=== PATIENT | male | born 1960 | race Caucasian/White ===

== ENCOUNTER 2020-08-28 13:49 | Inpatient (IN) | payer OTHER ==
[~2020-08-28] VITALS: Ht 177.8 cm; Wt 156.3 kg
--- NOTE | 2020-08-28 14:21 | NUR ---
pt from lobby to room 27
[2020-08-28 14:44] LABS: BASOPHILS % (AUTO) 0 % (0-1); EOSINOPHILS % (AUTO) 1 % (1-7); LYMPHOCYTES % (AUTO) 15 % (22-44); MEAN CORPUSCULAR HEMOGLOBIN 29.7 pg (27.5-34.5); MEAN CORPUSCULAR HGB CONC 34.3 g/dL (33.2-36.2); MEAN PLATELET VOLUME 8.5 fL (7.4-10.4); MONOCYTES % (AUTO) 9 % (2-9); NEUTROPHILS % (AUTO) 75 % (42-75); PLATELET COUNT 195 x10^3/uL (130-400); RED CELL DISTRIBUTION WIDTH 13.7 % (9.4-14.8)
[2020-08-28 14:45] LABS: MD NO
--- NOTE | 2020-08-28 15:02 | NUR ---
CC OF RIGHT LEG SWELLING AND REDNESS FOR A FEW DAYS WITH INCREASING PAIN TODAY. PULSES PRESENT BILAT AND EQUAL. PT DENIES HX OF DVT. 4+ PITTING EDEMA TO RIGHT LEG AND FOOT. AT BEDSIDE
[2020-08-28] MEDS ORDERED: CLINDAMYCIN PMX 600MG/50ML 50 ML IVPB ONE (15:30)
[2020-08-28] MEDS ORDERED: SODIUM CHLORIDE FLUSH 10ML SYR IVF ONE (15:30)
[2020-08-28] MEDS ORDERED: CLINDAMYCIN PMX 600MG/50ML 50 ML ONE (15:47)
[2020-08-28] MEDS ORDERED: LISI40TA9 PO (16:09)
[2020-08-28] MEDS ORDERED: SPIR25TA5 PO (16:09)
[2020-08-28] MEDS ORDERED: METF500T17 PO (16:12)
[2020-08-28] MEDS ORDERED: AMLO-211 PO (16:12)
[2020-08-28] MEDS ORDERED: PRAZ5CAP2 PO (16:12)
[2020-08-28] MEDS ORDERED: CARV-39 PO (16:12)
[2020-08-28 16:13] LABS: ALANINE AMINOTRANSFERASE 35 U/L (12-78); ALBUMIN 3.5 g/dL (3.4-5.0); ANION GAP 8 mmol/L (5-15); CALCIUM 9.3 mg/dL (8.5-10.1); CHLORIDE 107 mmol/L (98-107); CREATININE 1.62 mg/dL (0.7-1.3)
[2020-08-28 16:15] LABS: ALKALINE PHOSPHATASE 81 U/L (45-117); BILIRUBIN,TOTAL 0.4 mg/dL (0.2-1.0); TOTAL PROTEIN 8.5 g/dL (6.4-8.2)
[2020-08-28] MEDS ORDERED: SODIUM CHLORIDE FLUSH 10ML SYR IVF PRN (17:00)
--- NOTE | 2020-08-28 17:00 | NUR ---
TO BRING CPAP MACHINE FROM HOME IN
--- NOTE | 2020-08-28 18:10 | NUR ---
REPORT GIVEN TO TEENA ANDERSON
[2020-08-28 18:41] VITALS: BP 125/73
[2020-08-28] MEDS ORDERED: CEFAZOLIN 2,000 MG in SODIUM CHLORIDE 0.9% 50 ML IV SCH (19:30)
[2020-08-28] MEDS: CEFAZOLIN PMX 2GM/50ML 50 ML IVPB SCH (19:51)
[2020-08-28] MEDS: SPIRONOLACTONE 25 MG TABLET PO SCH (19:59)
[2020-08-28] MEDS: PRAZOSIN 5 MG CAPSULE PO SCH (19:59)
[2020-08-28] MEDS: HEPARIN 5,000 UNITS/ML, 1ML SQ SCH (19:59)
[2020-08-28] MEDS: CARVEDILOL 25 MG TABLET PO SCH (19:59)
[2020-08-28 20:00] VITALS: BP 110/70
[2020-08-28] MEDS: INSULIN LISPRO 100 UNITS/ML, PEN SQ-INSULIN SCH (20:58)
[2020-08-28] MEDS: ACETAMINOPHEN 325 MG TABLET PO PRN (21:01)
[2020-08-28 22:13] LABS: CREATININE,URINE RANDOM 65.9 mg/dL
[2020-08-28 22:31] VITALS: BP 125/73
[2020-08-29 03:20] VITALS: BP 104/58
[2020-08-29] MEDS: HEPARIN 5,000 UNITS/ML, 1ML SQ SCH ×3 (03:20→19:57)
[2020-08-29 05:34] LABS: BASOPHILS % (AUTO) 0 % (0-1); EOSINOPHILS % (AUTO) 1 % (1-7); LYMPHOCYTES % (AUTO) 17 % (22-44); MEAN CORPUSCULAR HGB CONC 34.3 g/dL (33.2-36.2); MEAN PLATELET VOLUME 8.5 fL (7.4-10.4); MONOCYTES % (AUTO) 10 % (2-9); NEUTROPHILS % (AUTO) 72 % (42-75); PLATELET COUNT 175 x10^3/uL (130-400); RED BLOOD COUNT 3.99 x10^6/uL (4.38-5.82); RED CELL DISTRIBUTION WIDTH 13.8 % (9.4-14.8)
[2020-08-29 05:35] LABS: ANION GAP 6 mmol/L (5-15); CHLORIDE 108 mmol/L (98-107)
[2020-08-29 05:36] LABS: CREATININE 1.26 mg/dL (0.7-1.3)
[2020-08-29 05:55] LABS: MD NO
[2020-08-29 06:51] VITALS: BP 129/79
[2020-08-29] MEDS: CEFAZOLIN PMX 2GM/50ML 50 ML IVPB SCH ×2 (07:52→15:59)
[2020-08-29] MEDS: ACETAMINOPHEN 325 MG TABLET PO PRN ×2 (07:52→15:59)
[2020-08-29] MEDS: SPIRONOLACTONE 25 MG TABLET PO SCH ×2 (08:43→19:57)
[2020-08-29] MEDS: CARVEDILOL 25 MG TABLET PO SCH ×2 (08:43→19:57)
[2020-08-29] MEDS: INSULIN LISPRO 100 UNITS/ML, PEN SQ-INSULIN SCH ×4 (08:44→19:58)
[2020-08-29] MEDS ORDERED: AMLODIPINE 10 MG TAB PO SCH ×2 (09:00→21:00)
[2020-08-29 12:17] VITALS: BP 101/71
[2020-08-29 19:49] VITALS: BP 128/62
[2020-08-29] MEDS: PRAZOSIN 5 MG CAPSULE PO SCH (19:57)
[2020-08-29] MEDS: AMLODIPINE 10 MG TAB PO SCH (19:57)
[2020-08-29] MEDS ORDERED: CALCIUM CARBONATE 500 MG TAB.CHEW PO PRN (20:00)
[2020-08-30 02:52] VITALS: BP 132/72
[2020-08-30] MEDS: HEPARIN 5,000 UNITS/ML, 1ML SQ SCH ×2 (03:26→11:04)
[2020-08-30 05:54] LABS: MEAN CORPUSCULAR HGB CONC 34.2 g/dL (33.2-36.2); MEAN PLATELET VOLUME 7.9 fL (7.4-10.4); PLATELET COUNT 201 x10^3/uL (130-400); RED BLOOD COUNT 4.06 x10^6/uL (4.38-5.82); RED CELL DISTRIBUTION WIDTH 13.6 % (9.4-14.8)
[2020-08-30 06:10] LABS: CHLORIDE 105 mmol/L (98-107)
[2020-08-30 06:15] LABS: ALANINE AMINOTRANSFERASE 31 U/L (12-78); ALKALINE PHOSPHATASE 88 U/L (45-117); ANION GAP 6 mmol/L (5-15); BILIRUBIN,TOTAL 0.4 mg/dL (0.2-1.0); CALCIUM 9.2 mg/dL (8.5-10.1); CREATININE 1.23 mg/dL (0.7-1.3); TOTAL PROTEIN 7.9 g/dL (6.4-8.2)
[2020-08-30 06:24] LABS: MD YES
[2020-08-30 06:25] LABS: BANDS%(MANUAL) 1 % (0-7); EOS% (MANUAL) 1 % (1-7); LYMPH#(MANUAL) 2.29 x10^3/uL (1-3.4); LYMPHS% (MANUAL) 22 % (22-44); METAMYELOCYTES% (MANUAL) 1 % (0-1); MONOS#(MANUAL) 0.73 x10^3/uL (0.3-2.7); MONOS% (MANUAL) 7 % (2-9); SEG#(MANUAL) 7.07 x10^3/uL (1.8-6.8); SEGS% (MANUAL) 68 % (42-75)
[2020-08-30 06:26] LABS: <PLATELET ESTIMATE> ADEQUATE; <PLT MORPHOLOGY> NORMAL PLT MORPH; <RBC MORPHOLOGY> NORMAL
[2020-08-30 06:59] VITALS: BP 133/77
[2020-08-30] MEDS: CEFAZOLIN PMX 2GM/50ML 50 ML IVPB SCH ×3 (07:42→16:09)
[2020-08-30] MEDS: ACETAMINOPHEN 325 MG TABLET PO PRN (07:42)
[2020-08-30] MEDS: INSULIN LISPRO 100 UNITS/ML, PEN SQ-INSULIN SCH ×3 (07:42→16:40)
[2020-08-30] MEDS: CARVEDILOL 25 MG TABLET PO SCH (09:34)
[2020-08-30] MEDS: SPIRONOLACTONE 25 MG TABLET PO SCH (09:34)
[2020-08-30] MEDS: AMLODIPINE 10 MG TAB PO SCH (09:35)
[2020-08-30 12:27] VITALS: BP 112/77
== END 2020-08-30 17:25 | disposition home or self-care (01) | DRG 683 ==
LOC: ED 14:52 → EDIP 17:14 → 3N 18:26
PROVIDERS: ADMIT Internal Medicine Infectious Disease; ATTEND Internal Medicine
DX: N17.9 Acute kidney failure, unspecified (principal); L03.115 Cellulitis of right lower limb; L97.919 Non-pressure chronic ulcer of unspecified part of right lower leg with unspecified severity; I13.0 Hypertensive heart and chronic kidney disease with heart failure and stage 1 through stage 4 chronic kidney disease, or unspecified chronic kidney disease; N18.30 Chronic kidney disease, stage 3 unspecified; G47.30 Sleep apnea, unspecified; I83.93 Asymptomatic varicose veins of bilateral lower extremities; M79.89 Other specified soft tissue disorders; E11.22 Type 2 diabetes mellitus with diabetic chronic kidney disease; E66.01 Morbid (severe) obesity due to excess calories; G47.33 Obstructive sleep apnea (adult) (pediatric); I50.9 Heart failure, unspecified; D72.829 Elevated white blood cell count, unspecified; E11.21 Type 2 diabetes mellitus with diabetic nephropathy; I83.90 Asymptomatic varicose veins of unspecified lower extremity; I87.2 Venous insufficiency (chronic) (peripheral); I89.0 Lymphedema, not elsewhere classified; Z79.899 Other long term (current) drug therapy; Z98.84 Bariatric surgery status; Z79.891 Long term (current) use of opiate analgesic; Z79.01 Long term (current) use of anticoagulants; Z90.49 Acquired absence of other specified parts of digestive tract; Z84.89 Family history of other specified conditions
CPT/HCPCS: 36415; 76770; 80048; 80053; 82570; 82962; 83036; 83605; 83880; 84300; 85025; 87040; 93306; 96365; 99285; G0378; J0690; J1644

== ENCOUNTER → 2020-10-12 | Outpatient (CLI) | payer OTHER ==
[~2020-10-12] MED LIST: AMLO-211 PO; CARV-39 PO; LISI40TA9 PO; METF500T17 PO; PRAZ5CAP2 PO; REGADENOSON 0.4 MG/5 ML SYRINGE ONE; SPIR25TA5 PO
== END | disposition home or self-care (01) ==
LOC: CFH 07:28
PROVIDERS: ATTEND Internal Medicine Cardiovascular Disease
DX: I25.9 Chronic ischemic heart disease, unspecified (principal); I42.9 Cardiomyopathy, unspecified; I50.23 Acute on chronic systolic (congestive) heart failure
CPT/HCPCS: 78452; 93017; A9502; J2785

== ENCOUNTER → 2021-04-27 | Outpatient (CLI) | payer OTHER | END | disposition home or self-care (01) | LOC: CVU 13:01 | PROVIDERS: ATTEND Physician Assistant | DX: I06.8 Other rheumatic aortic valve diseases (principal); I11.9 Hypertensive heart disease without heart failure ==